=== PATIENT | male | born 1945 | race Caucasian/White ===

== ENCOUNTER → 2025-02-02 | Emergency (ER) | payer OTHER, MEDICARE ==
[~2025-02-02] VITALS: Ht 177.8 cm; Wt 104.3 kg
[~2025-02-02] MED LIST: AMIOdarone 150MG VIAL IV ONE
[2025-02-02 17:41] VITALS: BP 91/30; PULSE 0; RESP 0
--- NOTE | 2025-02-02 17:42 | NUR ---
PT ARRIVED IN FULL ARREST WITH CPR NERY IN PROCESS. PER PT SUDDENLY WENT UNRESPONSIVE APPROX [phone] AND CALLED EMS. DISPATCH INSTRUCTED HER TO DO CPR WHILE EMS ARRIVED. UPON EMS ARRIVAL PT HAD BEEN UNRESPONSIVE FOR 10-15 MIN. EMS REPORTS ASYSTOLE AND WAS GIVEN 4 ROUNDS OF EPI AND GIVEN 2 AMPS OF BICARB.
--- NOTE | 2025-02-02 18:21 | ERN ---
ED Note History of Present Illness Stated Complaint: CARDIAC ARREST Chief Complaint: CPR/Full Arrest Time Seen by MD: 17:48 Dictation: 79-year-old male with a history of CABG, HTN, DM and COPD presents to the ED via EMS for evaluation of cardiac arrest. As per EMS patient is coming from home where he had a witnessed cardiac arrest after being short of breath. Family began CPR. Upon their arrival EMS intubated patient with a 7.5 ET tube and CPR was in progress on route. EMS administered four epis and two sodium bicarb on route. Patient had a glucose level of 288 mg/dL as per EMS. Review of System Dictation ROS unable to obtain due to cardiac arrest Physical Exam Dictation General: Unresponsive, GCS of 3 Head/Face: Normocephalic, atraumatic Eyes: Pupils are nonreactive ENT: Patient was intubated with a 7.5 ET tube 25 cm at the lips Neck: Trachea midline Cardiovascular: No cardiac activity Respiratory: Bilateral breath sounds with bag-valve ventilation Skin: Pale, cyanotic Medical Decision Making MDM MDM: Differential diagnosis: Cardiac arrest Risk of complication and/or morbidity or mortality of patient management: None Medications-Per medication reconciliation Need for hospitalization: Patient does not meet criteria for hospitalization. Need for emergency major/minor surgery: No 79-year-old male presents to the ED for witnessed cardiac arrest onset 15 minute [employer]. Patient was intubated by EMS with a 7.5 ET tube 24 cm at the lips, CPR was in progress, four epis and two sodium bicarbs were administered on route. ACLS protocol was followed, upon arrival 2 epis, calcium chloride, sodium bicarb and amiodarone were administered. Rhythm was asystole. Resuscitation was deemed futile and time of was called at 1746. Family was informed. Critical Care Note Critical Time: other (Total critical care time was 33 minutes. Excluding time for procedures. Management of critically ill patient with concern for acute decompensation. Management included interpretation of laboratory values and imaging, hemodynamics, time for consultation with consultants and admitting physician.) DX & DISP Disposition: Departure Impression: Primary Impression: Cardiac arrest Condition: NEEL WYNN MD Feb 02, 2025 18:21
--- NOTE | 2025-02-02 19:35 | NUR ---
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
== END ==
LOC: EDH 17:41
DX: I46.9 Cardiac arrest, cause unspecified (principal)
CPT/HCPCS: 99285; 92950; J0171; J3490 ×2; J0282; 99291